=== PATIENT | female | born 1960 | race Caucasian/White ===

== ENCOUNTER 2016-02-22 07:53 | Day surgery (SDC) | payer OTHER ==
--- NOTE | 2016-02-21 14:19 | PCM.HPANE ---
Patient Data Surgeon Admitting Provider: Attending Provider:Vicente Siddiqi MD Primary Care Physician:Chepe Pulliam MD Other Provider:Puja Fonsecaingham Anesthesia Reason for Visit Colon Polyp Ht/WT & BMI Body Mass Index Allergies Coded Allergies: ibuprofen (Verified Allergy, Unknown, fluid retention, mouth sores, ear ringing, headache, 02/21/16) naproxen (Unverified Allergy, Unknown, 02/21/16) latex (Verified Adverse Reaction, Mild, RAW SKIN, 02/21/16) Past Anesthesia History Anesthesia History: Denies:: Abnormal Airway, Anesthesia Reactions, Difficult Intubation, Fam Anesthesia Reaction, Fam Malignant Hypertherm, Malignant Hyperthermia Diabetes History Hx Diabetes?: No MRSA MRSA: No Medications Blood Thinner: Aspirin Active Scripts Hydrocodone-Acetaminophen 5-325 mg 1 Each Tablet1-2 Tablet PO Q4H PRN For Pain # 30 TABLET Ref 0 Prov:Pea, Laurel S DPM 09/14/15 Reported Medications Acetaminophen 500 Mg Tablet1,000 Mg PO HS PRN For Fever 08/24/15 Multivitamin (Once Daily)1 Each Tablet1 Each PO DAILY 02/08/15 Polyethylene Glycol 3350 (Miralax)17 Gm Powd.pack17 Gm PO DAILY 02/08/15 Ca Carb & Gluc/Mag Ox & Gluc (Calcium Magnesium Caplet)1 Each Tablet1 Each PO DAILY 02/02/14 Vitamin E Mixed (Vitamin E)400 Unit Tpwlbar818 Unit PO DAILY 30 Days 02/02/14 Ascorbic Acid (Vitamin C)500 Mg Capsule.er500 Mg PO DAILY 02/02/14 Triamterene/HCTZ 37.5-25 mg 1 Each Capsule1 Each PO DAILY 30 Days Ref 0 02/02/14 Docusate Sodium (Colace)100 Mg Dsqgcif081 Mg PO HS PRN For Constipation 30 Days Ref 0 06/05/13 Tamoxifen Citrate 20 Mg Quegjo36 Mg PO DAILY 06/05/13 Discontinued Reported Medications Celecoxib (Celebrex)50 Mg Bbxjmyf366 Mg PO PRN PRN For Pain #30 CAPSULE Ref 0 07/15/14 Pyridoxine (Vitamin B-6)50 Mg Ochvtn52 Mg PO DAILY 02/02/14 History History of ENT Problems?: No HEENT History: Positive for:: Hearing Problem Denies:: Abnormal Airway Cataracts Difficult Intubation Dysphagia Sinus Problem TMJ Hx of Heart Problems?: No Cardiovascular History: Denies:: Atrial Fibrillation Congestive Heart Failure Edema Heart Murmur Hypertension Irregular Heartbeat Pacemaker Rheumatic Fever Hx of Respiratory Problem?: No Respiratory History: Denies:: Asthma COPD Cough Dyspnea Emphysema Oxygen Administration Tuberculosis Use of C-PAP Machine Hx Neurologic Problems?: Yes Neurological History: Positive for:: Headaches Denies:: CVA Multiple Sclerosis Parkinson's Disease Seizures Hx of GI Problems?: Yes Gastrointestinal History: Denies:: Diverticulitis Gastroesphageal Reflux Heartburn Hepatitis Hiatal Hernia Hx of Problems?: No Genitourinary History: Denies:: HX of Hemodialysis Kidney Stones Urinary Tract Infection HX of Peritoneal Dialysis: No Female Hx: Positive for:: Problems with Breasts? (hx of right breast cancer) Denies:: Currently Skin History: Denies:: History Skin Disorders? Pressure Ulcers Hx Musculoskeletal Problems?: Yes Musculoskeletal History: Positive for:: Musculoskeletal Trauma (left foot hammertoe current admission problem) Denies:: Back Injury Degenerative Joint Joint Replacement Hx of Psycho/Social Problems?: No Psycho Social History: Denies:: Bipolar Disorder Hx Depression Hx Surgeries?: Yes (lumpectomy, foot, T&A) Hx Any Other Health Problems?: Yes Other History: Positive for:: Cancer (right breast) Denies:: Endocrine Disease Thyroid Disease History Blood Transfusions: Denies:: Blood Transfusions Hx Diabetes: No Hx Alcohol Use: YesHx Substance Use: No Smoking Status: Never Smoker Have You Smoked inLast 12 mo: No Stop/Bang Risk Assessment Category Category 1A: Patient has history of documented sleep apnea, and HAS NOT received any narcotic, sedative or anesthesia administration during this stay. Category 1B: Patient has history of documented sleep apnea, and HAS received any narcotic , sedative or anesthesia administration during this stay Category 2: Patient has SUSPECTED Obstructive Sleep Apnea, and HAS received any narcotic , sedative or anesthesia administration during this stay. Category 3: Patient has SUSPECTED Obstructive Sleep Apnea and HAS NOT received narcotic, sedative or anesthesia administration during this stay. Category 4: Outpatient in Procedural Areas with known sleep apnea or who screen positive for High Risk via the STOP/BANG questionnaire. Plan Impression Patient chart reviewed. NPO Status: 9pm Memo Francisco MD Feb 21, 2016 14:19
[~2016-02-22] VITALS: Ht 165.1 cm; Wt 66.2 kg
[~2016-02-22 07:53] MED LIST: ACET-171 PO; ASCO500C6 PO; CA C1TAB86 PO; CELE50CA PO; DOCU-41 PO; HYDR-4003 PO; Lactated Ringer's 1,000 ML IV ONE; MULT-666 PO; POLY17PO6 PO; PYR50 PO; TAMO20TA4 PO; TRIA1CAP5 PO; VITA400C64 PO
[2016-02-22] MEDS ORDERED: Propofol 10,000 mCg/mL 20 mL Inj ONE (07:54)
[2016-02-22] MEDS ORDERED: fentaNYL-PF 50 mCg/mL 2 mL Inj ONE (07:54)
[2016-02-22 08:06] VITALS: BP 112/66; PULSE 55; RESP 12; O2SAT 100
[2016-02-22 09:44] VITALS: BP 94/62; PULSE 63; RESP 14; O2SAT 97
[2016-02-22] MEDS ORDERED: hydrALAZINE 20 mg/mL Inj IVPUSH PRN (09:45)
[2016-02-22] MEDS ORDERED: Ondansetron 2 mg/mL 2 mL Inj IVPUSH PRN (09:45)
[2016-02-22] MEDS ORDERED: fentaNYL-PF 50 mCg/mL 2 mL Inj IVPUSH PRN (09:45)
[2016-02-22] MEDS ORDERED: Labetalol 5 mg/mL 4 mL Inj IV PRN (09:45)
[2016-02-22] MEDS ORDERED: Atropine 0.4 mg/mL Inj IVPUSH PRN (09:45)
[2016-02-22] MEDS ORDERED: Phenylephrine 10,000 mCg/mL Inj IVPUSH PRN (09:45)
[2016-02-22] MEDS ORDERED: EPHEDrine Sulfate 50 mg/mL Inj IVPUSH PRN (09:45)
[2016-02-22] MEDS ORDERED: Dexamethasone 4 mg/mL Inj IVPUSH PRN (09:45)
[2016-02-22] MEDS ORDERED: HYDROmorphone 1 mg/mL Inj IVPUSH PRN (09:45)
[2016-02-22] MEDS ORDERED: Lactated Ringer's 1,000 ML IV SCH (09:45)
[2016-02-22] MEDS ORDERED: Lactated Ringer's 500 ML IV PRN (09:45)
--- NOTE | 2016-02-22 09:45 | PCM.ANEP1 ---
Post Anesthesia Phase 1 PACU Phase 1 Assessment Vital Signs Vital Signs Date Time Temp Pulse Resp B/P Pulse Ox O2 Delivery O2 Flow Rate FiO2 02/22/16 08:06 36.7 55 12 112/66 100 Room Air Anesthetic Administered: GA Level of Alertness: Awake, talking STEINER's with Equal Strength: Yes Pain: No Nausea or Vomiting: No Oxygen Delivery: Room Air Lungs: Normal Air Movement Memo Francisco MD Feb 22, 2016 09:45
[2016-02-22 09:56] VITALS: BP 85/61; PULSE 50; RESP 14; O2SAT 100
[2016-02-22 10:06] VITALS: BP 98/59; PULSE 57; RESP 16; O2SAT 95
--- NOTE | 2016-02-22 10:24 | ENDO ---
[address] [address] ENDOSCOPY PROCEDURE PATIENT: BRET ANN V : 1960 MR#: [id number] ADMIT: 02/22/2016 JOB ID: [id number] PRIMARY PROVIDER: Chepe Pulliam MD PROCEDURE: A colonoscopy with hot snare polypectomy, hot forceps polypectomy and cold forceps polypectomy. INDICATIONS: A 55-year-old female with a personal history of adenomatous colon polyps. EQUIPMENT: [id number] SEDATION: Monitored anesthesia as provided by Dr. Jasson Francisco. COMPLICATIONS: None identified. BOWEL PREPARATION: Fair, adequate exam. PROCEDURE INFORMATION: After the risks and benefits were explained, written and verbal informed consent was obtained. The patient was brought into the endoscopy suite and placed into the left lateral decubitus position. Sedation was achieved using the above-stated medications with the addition of oxygen via nasal cannula. A digital rectal examination was accomplished and, apart from some mild internal, external, nonbleeding, nonthrombosed hemorrhoids, no other pathology was appreciated. The scope was introduced into the rectum and advanced under direct visualization to the level of the cecum, as identified by the appendiceal orifice and ileocecal valve. The scope was slowly withdrawn to carefully examine the mucosa for any defects or lesions. Multiple direct views were made through the dentate line for exclusion of pathology. The colon was decompressed, scope removed from the patient who tolerated the procedure well. FINDINGS: In the ascending colon, two separate tattoo locations were identified and I did not see any residual polyp in either of these areas. There were two polyps removed in the ascending colon. One was by way of cold forceps, very diminutive. The other was perhaps 7 mm, and we initially came through this without cautery. There was a small amount of oozing of red blood. We cauterized this and removed the residual polypoid mucosa with hot forceps for the completion polypectomy. During all of the maneuvers, the actual polyp could not be located again after it had been excised. There was a 3rd small polyp, perhaps 4-5 mm, sessile in the rectosigmoid, removed with hot snare. No other significant pathology identified throughout. ENDOSCOPIC DIAGNOSES: 1. Colon polyps. 2. Hemorrhoids. RECOMMENDATIONS: 1. Await histopathology. 2. Repeat colonoscopy in three years.
--- NOTE | 2016-02-22 11:36 | PCM.ANEP2 ---
Post Anesthesia Evaluation ASA/CMS Post Anesthesia VS in Patient's Normal Range?: Yes Resp Stable; Airway Patent?: Yes CV Function & Hydration Stable: Yes Mental Status Recovered?: Yes Pain control Satisfactory?: Yes N/V Control Satisfactory?: Yes Memo Francisco MD Feb 22, 2016 11:36
--- NOTE | 2016-02-23 12:09 | PATH ---
SURGICAL PATHOLOGY Attending Physician:David Qiu CASE STATUS: Signed Out PATIENT NAME: BRET ANN V. PID: [id number] : 1960 DATE COLLECTED:02/22/2016 17:26 SPECIMEN: Colon, Biopsy CLINICAL HISTORY: A: ASCENDING POLYP X2 FINAL DIAGNOSIS: 1.ASCENDING POLYPS: TUBULAR ADENOMA, 1. BENIGN COLONIC MUCOSA WITH SUPERFICIAL MUCOSAL HYPERPLASIA, 1. ICD10 CODE D12.2 GROSS DESCRIPTION: The specimen is received in one formalin filled container labeled with the patient's name, sublabeled "ascending polyp X2" and consists of 2 portions of tissue which aggregate to 0.2 x 0.2 x 0.2 CM. The specimen is entirely submitted in one cassette. 02/22/2016 DAC MICRO DESCRIPTION: See diagnosis. ICD-9 CODES: CPT CODES: 1: 96943 Electronically Signed Out Alis Stern MD [facility] Pathology [facility] [address], [place] [address] Technical component performed at [facility], [facility] [address], [place], [address]
== END 2016-02-22 23:59 | disposition home or self-care (01) ==
LOC: END 07:53
PROVIDERS: ATTEND Internal Medicine Gastroenterology
DX: Z12.11 Encounter for screening for malignant neoplasm of colon (principal); Z86.010 Personal history of colon polyps; D12.2 Benign neoplasm of ascending colon; K64.4 Residual hemorrhoidal skin tags; K64.8 Other hemorrhoids; Z79.82 Long term (current) use of aspirin
CPT/HCPCS: 45380; 45384; 45385; J2250; J7120